=== PATIENT | male | born 1945 | race Caucasian/White ===

== ENCOUNTER 2023-11-14 08:11 | Inpatient (IN) ==
[2023-11-14] MEDS: OPTIRAY 320 125ml IV ONE (08:19)
--- NOTE | 2023-11-14 08:38 | Emergency Department Note ---
Impression & Plan Stroke-like symptoms ADMIT ED Provider Note HPI: History obtained from patient and EMS report. The patient is a 78-year-old gentleman with history of mandibular cancer status post tumor resection in 2006, who presents the emergency department with concern for strokelike symptoms. Per EMS report patient developed left-sided weakness and slurred speech at 0705 this morning when he was with his friends eating breakfast. On arrival here to the ED patient's symptoms are largely resolved. Patient tells me he was having difficulty drinking coffee at 0705 this morning and he felt numbness on the left side of his face and his left arm. He states he was having some difficulty moving the coffee cup to his mouth and felt discoordinated. On arrival here to the ED the patient is otherwise well- appearing. He does not have any focal motor deficits. He is alert and oriented x 3 on arrival. ROS: - Per HPI Differential Diagnosis: Acute ischemic stroke, intracranial hemorrhage, paresthesias, ACS, amongst other potential pathologies. *Outpatient medications and allergy history reviewed. 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 strength, symmetrical facial movements are appreciated, there is no drift of the upper extremities or lower extremities with testing against gravity, no ataxia on [id number] testing bilaterally Psychiatric: Cooperative INDEPENDENT INTERPRETATIONS: 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: (As interpreted by myself): - An order was placed for continuous cardiac monitoring - Patient was noted to be in sinus rhythm with a rate of 80 EKG: (As interpreted by myself): Rate: 84 Rhythm: Sinus rhythm Intervals: AK interval prolonged at 234 ms, QRS of 132 ms, QTc within normal limits ST changes: No ST elevation Time: 0830 Chest x-ray: (As interpreted by myself): No acute process Interventions provided in ED: -Aspirin, Lipitor NIH STROKE SCALE: 1A: Level of consciousness Alert; keenly responsive 0 1B: Ask month and age Both questions right 0 1C: 'Blink eyes' & 'squeeze hands' Performs both tasks 0 2: Horizontal extraocular movements Normal 0 3: Visual mann No visual loss 0 4: Facial palsy Normal symmetry 0 5A: Left arm motor drift No drift for 10 seconds 0 5B: Right arm motor drift No drift for 10 seconds 0 6A: Left leg motor drift No drift for 5 seconds 0 6B: Right leg motor drift No drift for 5 seconds 0 7: Limb Ataxia No ataxia 0 8: Sensation Normal; no sensory loss 0 9: Language/aphasia Normal; no aphasia 0 10: Dysarthria Normal 0 11: Extinction/inattention No abnormality 0 TOTAL NIH SCORE = 0 Medical Decision Making: Shortly after the patient arrived IV was established and lab work obtained, patient was placed on portrait consultant. Patient's initial exam is without focal deficits and he is assigned an NIH stroke score of 0. His symptoms seem to have rapidly improved. Lab work shows no leukocytosis, hemoglobin is stable at 13.4, platelet count is normal, CMP does not show any critical findings, troponin is negative x 1. CT ridging of the head as well as CT angiography were obtained and did not show any evidence of acute hemorrhage, no obvious evidence of acute stroke, old infarcts are noted as well as occlusion of the right carotid artery with reconstitution of flow distally. I discussed the patient's presentation with the on-call stroke neurologist at [facility], Dr. Sanchez, who did evaluate the patient via telestroke and patient was determined not to be candidate for thrombolytics given his rapid improvement in his symptoms. He does recommend admission, initiation of aspirin and Lipitor, and for MRI imaging of the brain to be obtained. I discussed this with the patient, he remains well-appearing on my reassessment without any new focal deficits. He is in agreement for admission. Case was then discussed with the on-call hospitalist, Dr. Dodge, and the patient was placed for admission in stable condition. Consultants/Discussions held with other healthcare providers: -Stroke Neurology, Dr. Sanchez -Hospitalist, Dr. Dodge Disposition discussion held by myself with: -Patient Diagnosis: 1. Strokelike symptoms, acute 2. 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 Beliefs That Will Affect Care: None Current Living Situation: Alone Other Information That Helps Us Care for You: No Feels Safe at Home: Yes Safety Concerns: Feels Safe At This Time Assistive Devices: Glasses Allergies Allergies Allergy/AdvReac Type Severity Reaction Status Date / Time No Known Allergies Allergy Unverified 11/14/23 12:31 Home Meds Home Medications Medication Instructions Recorded Confirmed Multi-Vitamin W/Minerals 1 tspn PO DAILY 11/14/23 11/14/23 buprenorphine 5 mcg/hour weekly 1 patch transdermal Q7D 11/14/23 11/14/23 transdermal patch diclofenac sodium 1 % topical gel 1 ea topical QID PRN joint pain 11/14/23 11/14/23 docusate sodium 100 mg capsule 100 mg PO BID 11/14/23 11/14/23 fluticasone propionate 50 1 spray intranasal BID PRN 11/14/23 11/14/23 mcg/actuation nasal allergies spray,suspension food supplemt, lactose-reduced 1 ea PO TID 11/14/23 11/14/23 (Ensure oral liquid) ketorolac 0.5 % eye drops 1 drp ophthalmic (eye) UD 11/14/23 11/14/23 lisinopril 10 mg tablet 10 mg PO DAILY 11/14/23 11/14/23 loratadine 10 mg tablet 10 mg PO DAILY PRN allergies 11/14/23 11/14/23 meloxicam 15 mg tablet 15 mg PO DAILY 11/14/23 11/14/23 moxifloxacin 0.5 % eye drops 1 drp ophthalmic (eye) UD 11/14/23 11/14/23 prednisolone acetate 1 % eye 1 drp ophthalmic (eye) UD 11/14/23 11/14/23 drops,suspension sildenafil 100 mg tablet 50 mg PO DAILY PRN Erectile 11/14/23 11/14/23 Dysfunction Results & Data (ED) Vital Signs Vital Signs - 24 hr 11/14/23 08:27 11/14/23 08:29 11/14/23 08:30 Temperature 36.6 C Temperature Source Oral Pulse Rate 88 81 Pulse Rate [Right Finger] Pulse Rate from SpO2 Sensor Pulse Rhythm [Right Finger] Pulse Strength [Right Finger] Respiratory Rate 15 Respiratory Effort / Characteristics Respiratory Depth Respiratory Pattern Blood Pressure 178/94 H 178/94 H Blood Pressure [Right Arm] Blood Pressure Mean 122 119 Blood Pressure Mean [Right Arm] Blood Pressure Position [Right Arm] Pulse Oximetry 98 Oxygen Delivery Method Room Air Oxygen Flow Rate Sepsis Recent Fever Within 48 Hours No Sepsis New/Unexplained Change in Mental Status No Sepsis Action Taken by Nursing No Action Required 11/14/23 08:30 11/14/23 08:35 11/14/23 08:36 Temperature Temperature Source Pulse Rate 75 Pulse Rate [Right Finger] Pulse Rate from SpO2 Sensor Pulse Rhythm [Right Finger] Pulse Strength [Right Finger] Respiratory Rate 21 Respiratory Effort / Characteristics Respiratory Depth Respiratory Pattern Blood Pressure 178/94 H Blood Pressure [Right Arm] Blood Pressure Mean 119 Blood Pressure Mean [Right Arm] Blood Pressure Position [Right Arm] Pulse Oximetry 96 97 Oxygen Delivery Method Room Air Oxygen Flow Rate 0 Sepsis Recent Fever Within 48 Hours Sepsis New/Unexplained Change in Mental Status Sepsis Action Taken by Nursing 11/14/23 09:00 11/14/23 09:00 11/14/23 11:00 Temperature Temperature Source Pulse Rate 69 54 L Pulse Rate [Right Finger] Pulse Rate from SpO2 Sensor 70 Pulse Rhythm [Right Finger] Pulse Strength [Right Finger] Respiratory Rate 20 23 Respiratory Effort / Characteristics Respiratory Depth Respiratory Pattern Blood Pressure 174/91 H 174/91 H 144/97 H Blood Pressure [Right Arm] Blood Pressure Mean 135 118 112 Blood Pressure Mean [Right Arm] Blood Pressure Position [Right Arm] Pulse Oximetry 96 96 Oxygen Delivery Method Room Air Room Air Oxygen Flow Rate Sepsis Recent Fever Within 48 Hours Sepsis New/Unexplained Change in Mental Status Sepsis Action Taken by Nursing 11/14/23 12:10 11/14/23 12:49 11/14/23 14:00 Temperature 36.4 C L 36.4 C L Temperature Source Oral Oral Pulse Rate 71 Pulse Rate [Right Finger] 61 62 Pulse Rate from SpO2 Sensor Pulse Rhythm [Right Finger] Regular Regular Pulse Strength [Right Finger] Normal Normal Respiratory Rate 12 20 20 Respiratory Effort / Characteristics Non-Labored Non-Labored Spontaneous Respiratory Depth Normal Normal Respiratory Pattern Regular Regular Blood Pressure 121/90 Blood Pressure [Right Arm] 143/74 H 120/98 Blood Pressure Mean Blood Pressure Mean [Right Arm] 97 105 Blood Pressure Position [Right Arm] Lying Semi-fowlers Pulse Oximetry 98 99 99 Oxygen Delivery Method Room Air Room Air Room Air Oxygen Flow Rate Sepsis Recent Fever Within 48 Hours Sepsis New/Unexplained Change in Mental Status Sepsis Action Taken by Nursing Laboratory Data 11/14/23 08:35 11/14/23 08:23 Lab Results 11/14/23 11/14/23 11/14/23 Range/Units 08:23 08:28 08:35 WBC Cancelled 5.82 RBC Cancelled 4.14 L Hgb Cancelled 13.4 L Hct Cancelled 40.6 L MCV Cancelled 98.1 MCH Cancelled 32.4 MCHC Cancelled 33.0 RDW Std Deviation Cancelled 44.7 RDW Coeff of Prakash Cancelled 12.3 Plt Count Cancelled 160 MPV Cancelled 9.8 Immature Gran % (Auto) Cancelled 0.3 Neut % (Auto) Cancelled 66.7 Lymph % (Auto) Cancelled 21.6 [place] % (Auto) Cancelled 6.9 Eos % (Auto) Cancelled 4.0 Baso % (Auto) Cancelled 0.5 Neut # (Auto) Cancelled 3.88 Lymph # (Auto) Cancelled 1.26 [place] # (Auto) Cancelled 0.40 Eos # (Auto) Cancelled 0.23 Baso # (Auto) Cancelled 0.03 Immature Gran # (Auto) Cancelled 0.02 Absolute Nucleated RBC Cancelled Nucleated RBC % (auto) Cancelled Neutrophils % (Manual) Cancelled Band Neutrophils % Cancelled Lymphocytes % (Manual) Cancelled Prolymphocyte % Cancelled Reactive Lymphs % (Man) Cancelled Monocytes % (Manual) Cancelled Eosinophils % (Manual) Cancelled Basophils % (Manual) Cancelled Metamyelocytes % (Man) Cancelled Myelocytes % (Man) Cancelled Promyelocytes % (Man) Cancelled Blast Cells % (Manual) Cancelled Plasma Cell % (Manual) Cancelled Other Cells % Cancelled Nucleated RBC % Cancelled Neutrophils # (Manual) Cancelled Band Neutrophils # Cancelled Total Absolute Neuts Cancelled Lymphocytes # (Manual) Cancelled Prolymphocyte # Cancelled Reactive Lymphs # Cancelled Total Abs Lymphocytes Cancelled Monocytes # (Manual) Cancelled Eosinophils # (Manual) Cancelled Basophils # (Manual) Cancelled Metamyelocytes # (Man) Cancelled Myelocytes # (Manual) Cancelled Promyelocytes # (Man) Cancelled Blast Cells # (Man) Cancelled Plasma Cell # (Manual) Cancelled Other Cells # Cancelled Nucleated RBCs # (Man) Cancelled Hypersegmented Neuts Cancelled Hyposegmented Neuts Cancelled Hypogranular Neuts Cancelled Large Granular Lymphs Cancelled # Lrg Granular Lymphs Cancelled Hairy Cells Cancelled Smudge Cells Cancelled Toxic Granulation Cancelled Toxic Vacuolation Cancelled Dohle Bodies Cancelled Fatoumata Rods Cancelled Platelet Estimate Cancelled Hypogranular Platelets Cancelled Giant Platelets Cancelled Platelet Satelliting Cancelled RBC Morphology Cancelled Polychromasia Cancelled Hypochromasia Cancelled Poikilocytosis Cancelled Basophilic Stippling Cancelled Anisocytosis Cancelled Microcytosis Cancelled Macrocytosis Cancelled Spherocytes Cancelled Pappenheimer Bodies Cancelled Sickle Cells Cancelled Target Cells Cancelled Tear Drop Cells Cancelled Ovalocytes Cancelled Stomatocytes Cancelled Duarte-Gene Autry Bodies Cancelled Echinocytes Cancelled Acanthocytes (Spur) Cancelled Rouleaux Cancelled RBC Agglutinates Cancelled Schistocytes Cancelled Sezary Cell Cancelled PT Cancelled INR Cancelled APTT Cancelled PTT Ratio Cancelled Sodium 138 (136-145) mmol/L Potassium 4.7 (3.5-5.1) mmol/L Chloride 104 (98-107) mmol/L Carbon Dioxide 29 (21-32) mmol/L Anion Gap 5 (3-11) BUN 21 (6-23) mg/dl Creatinine 0.65 (0.6-1.4) mg/dl Est Cr Clr Drug Dosing 84.1 ml/min Est GFR ( Amer) 109.5 ml/min Est GFR (Non-Af Amer) 94.5 ml/min BUN/Creatinine Ratio 32.3 H (10-20) Glucose 125 H (70-99(Fasting)) mg/dl POC Glucose 110 H (70-99) mg/dl Calcium 9.4 (8.6-10.3) mg/dl Magnesium 2.3 (1.7-2.4) mg/dl Total Bilirubin 0.6 (0.2-1.0) mg/dl AST 24 (13-39) U/L ALT 13 (7-52) U/L Alkaline Phosphatase 52 (34-104) U/L Troponin I High Sens 2.6 (0-20) pg/ml Total Protein 7.3 (6.0-8.3) gm/dl Albumin 4.4 (3.4-5.0) gm/dl Globulin 2.9 (2.5-4.0) gm/dl Albumin/Globulin Ratio 1.5 (0.9-2) Blood Parasites ID Cancelled Blood Type O Positive Antibody Screen NEGATIVE 11/14/23 Range/Units 08:37 WBC RBC Hgb Hct MCV MCH MCHC RDW Std Deviation RDW Coeff of Prakash Plt Count MPV Immature Gran % (Auto) Neut % (Auto) Lymph % (Auto) [place] % (Auto) Eos % (Auto) Baso % (Auto) Neut # (Auto) Lymph # (Auto) [place] # (Auto) Eos # (Auto) Baso # (Auto) Immature Gran # (Auto) Absolute Nucleated RBC Nucleated RBC % (auto) Neutrophils % (Manual) Band Neutrophils % Lymphocytes % (Manual) Prolymphocyte % Reactive Lymphs % (Man) Monocytes % (Manual) Eosinophils % (Manual) Basophils % (Manual) Metamyelocytes % (Man) Myelocytes % (Man) Promyelocytes % (Man) Blast Cells % (Manual) Plasma Cell % (Manual) Other Cells % Nucleated RBC % Neutrophils # (Manual) Band Neutrophils # Total Absolute Neuts Lymphocytes # (Manual) Prolymphocyte # Reactive Lymphs # Total Abs Lymphocytes Monocytes # (Manual) Eosinophils # (Manual) Basophils # (Manual) Metamyelocytes # (Man) Myelocytes # (Manual) Promyelocytes # (Man) Blast Cells # (Man) Plasma Cell # (Manual) Other Cells # Nucleated RBCs # (Man) Hypersegmented Neuts Hyposegmented Neuts Hypogranular Neuts Large Granular Lymphs # Lrg Granular Lymphs Hairy Cells Smudge Cells Toxic Granulation Toxic Vacuolation Dohle Bodies Fatoumata Rods Platelet Estimate Hypogranular Platelets Giant Platelets Platelet Satelliting RBC Morphology Polychromasia Hypochromasia Poikilocytosis Basophilic Stippling Anisocytosis Microcytosis Macrocytosis Spherocytes Pappenheimer Bodies Sickle Cells Target Cells Tear Drop Cells Ovalocytes Stomatocytes Duarte-Gene Autry Bodies Echinocytes Acanthocytes (Spur) Rouleaux RBC Agglutinates Schistocytes Sezary Cell PT 10.6 INR 1.0 APTT 28 PTT Ratio 1.0 Sodium (136-145) mmol/L Potassium (3.5-5.1) mmol/L Chloride (98-107) mmol/L Carbon Dioxide (21-32) mmol/L Anion Gap (3-11) BUN (6-23) mg/dl Creatinine (0.6-1.4) mg/dl Est Cr Clr Drug Dosing ml/min Est GFR ( Amer) ml/min Est GFR (Non-Af Amer) ml/min BUN/Creatinine Ratio (10-20) Glucose (70-99(Fasting)) mg/dl POC Glucose (70-99) mg/dl Calcium (8.6-10.3) mg/dl Magnesium (1.7-2.4) mg/dl Total Bilirubin (0.2-1.0) mg/dl AST (13-39) U/L ALT (7-52) U/L Alkaline Phosphatase (34-104) U/L Troponin I High Sens (0-20) pg/ml Total Protein (6.0-8.3) gm/dl Albumin (3.4-5.0) gm/dl Globulin (2.5-4.0) gm/dl Albumin/Globulin Ratio (0.9-2) Blood Parasites ID Blood Type Antibody Screen Administered Medications Buprenorphine HCl (Buprenorphine 5 Mcg/Hr Tdsy) 1 patch TD Q7D BEBO Stop: 12/14/23 10:59 Last Admin: 11/14/23 12:58 Dose: 1 patch Documented By: NAVI Miscellaneous (Remove & Waste Butrans Patch 1 Ea Ea) 1 each N/A Q7D BEBO Stop: 12/14/23 10:59 Last Admin: 11/14/23 12:59 Dose: Not Given Documented By: NAVI Discontinued Medications Aspirin (Aspirin Chew 324 Mg) 324 mg PO NOW STA Stop: 11/14/23 09:24 Last Admin: 11/14/23 09:41 Dose: 324 mg Documented By: ADOLFO Atorvastatin Calcium (Atorvastatin 40 Mg Tab) 80 mg PO NOW STA Stop: 11/14/23 09:24 Last Admin: 11/14/23 09:41 Dose: 80 mg Documented By: KV Ioversol (Optiray 320 125ml) 112 ml IV ONCE ONE Stop: 11/14/23 08:19 Last Admin: 11/14/23 08:19 Dose: 112 ml Documented By: FLORINA Imaging Data Radiologist's Impression: Head CT 11/14/23 08:12 CT head/brain wo con CLINICAL HISTORY: 78 years-old Male with neuro deficit, acute stroke suspected. Acute strokelike symptoms TECHNIQUE: Multiple axial CT images of the head were obtained without contrast. A dose lowering technique was utilized adhering to the principles of ALARA. COMPARISON: CTA head of same day, head CT 07/31/2008 FINDINGS: No acute intracranial hemorrhage, midline shift, intracranial mass, hydrocephalus, territorial ischemia or abnormal extra-axial collection. Involutional changes with suggestion of chronic microvascular ischemic disease. 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 There is a 1.4 cm hypodense focus within the periventricular right frontal lobe on image 17 series 2 which is also new from prior. The calvarium is intact. The paranasal sinuses, mastoid air cells, and middle ear cavities are clear. IMPRESSION: 1. No acute intracranial hemorrhage, midline shift or acute territorial infarct. 2. 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 3. 1.4 cm right periventricular hypodensity is new from 2008, also suggestive of a chronic infarct. ACT 112: Negative or not required by law. The above report was generated using voice recognition software. It may contain grammatical, syntax or spelling errors. Electronically signed by: Luis Carlos Bergeron M.D. 11/14/2023 9:14 AM Head CTA 11/14/23 08:12 CT ANGIOGRAM OF THE BRAIN CLINICAL HISTORY: Neurological deficit. Stroke like symptoms. COMPARISON STUDY: Unenhanced CT of the brain performed concurrently on 11/14/2023 TECHNIQUE: Following the IV administration of 112 cc of Optiray 320, CT angiogram of the brain was performed from the skull base to the vertex. Images are reviewed in the axial, sagittal, and coronal planes. 3-D MIPS images are created and assessed. IV contrast was administered without complication. A dose lowering technique was utilized adhering to the principles of ALARA. FINDINGS: Brain parenchyma: There is age related involutional change noting mild to moderate subcortical and periventricular microangiopathic disease. Foci of right frontal, parietal, and occipital encephalomalacia are consistent with a remote insult. There is no evidence of hemorrhage, mass effect, or acute territorial ischemia noting angiographic phase technique. There is no evidence of enhancing mass lesion on the angiogram phase images. No extra-axial fluid collection is seen. Pool-white matter differentiation is preserved. Ventricles, sulci, and cisterns: Prominent secondary to positional change. CT angiogram of the brain: There is atherosclerotic calcification of the cavernous carotid and vertebral arteries. There is complete thrombosis of the distal cervical portion of the right internal carotid artery. There is reconstitution of flow at the skull base, and the vessels patent to the e[place] of [place]. The left internal carotid artery at the skull base is widely patent. The anterior and middle cerebral arteries are patent bilaterally. The right vertebral artery is diminutive and shows thready flow at the skull base. The dominant left vertebral artery is widely patent, as is the basilar artery. There are large bilateral posterior communicating arteries. No aneurysm or focus of high-grade stenosis is identified throughout the intracranial circulation. Dural sinuses: Clear as visualized. Orbits: The bony orbits are intact. The orbital contents are normal as visualized. Sinuses and mastoids: The visualized paranasal sinuses are clear. The mastoid air cells are well pneumatized. Calvarium: Unremarkable. IMPRESSION: 1. There is no evidence of hemorrhage, mass effect, or acute territorial ischemia noting angiographic phase technique. 2. There is complete and age-indeterminate thrombosis of the distal cervical portions of the right internal carotid artery with reconstitution at the skull base. This may be chronic as there are remote right-sided MCA territory infarcts. An underlying dissection would be impossible to exclude. Correlate with neurological history. 3. There is only thready flow within the diminutive right vertebral artery. The dominant left vertebral artery is widely patent. 4. The anterior, middle, and posterior cerebral arteries are patent bilaterally. ACT 112: Negative or not required by law. Electronically signed by: Gerard Grajeda M.D. 11/14/2023 8:39 AM Neck CTA 11/14/23 08:12 CT angio neck with con CLINICAL HISTORY: 78 years-old Male with neuro deficit, acute stroke suspected. Acute strokelike symptoms COMPARISON STUDY: CTA head of same day TECHNIQUE: Following the IV administration of 112 mL of Optiray, CT angiogram of the neck was performed from the aortic arch to the skull base. Images are reviewed in the axial, sagittal, and coronal planes. 3-D MIPS images are created and assessed. IV contrast was administered without complication. All measurements were calculated based on NASCET criteria. A dose lowering technique was utilized adhering to the principles of ALARA. CT DOSE: 1241.78 mGy.cm FINDINGS: Three-vessel morphology of the thoracic aortic arch. Patency of the innominate and imaged subclavian arteries. The common carotid arteries are patent. Atheromatous plaque of the left carotid bulb and proximal cervical segment left ICA results in 60% stenosis. There is occlusion at the origin of the right ICA with reconstitution within the petrous segment. Widely patent dominant left vertebral artery. Diminutive right vertebral artery demonstrates multifocal stenoses, difficult to evaluate secondary to the very small size of the vessel. Lung apices are clear. Unremarkable soft tissues. Degenerative changes of the spine. IMPRESSION: 1. 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 2. 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 3. 60% stenosis at the origin of the left internal carotid artery. ACT 112: Negative or not required by law. The above report was generated using voice recognition software. It may contain grammatical, syntax or spelling errors. Electronically signed by: Luis Carlos Bergeron M.D. 11/14/2023 9:28 AM Brain MRI 11/14/23 10:48 MRI OF THE BRAIN WITHOUT IV CONTRAST CLINICAL HISTORY: Strokelike symptoms. COMPARISON STUDY: CT an CT angiogram of the brain dated 11/14/2023. TECHNIQUE: MRI of the brain was performed utilizing various T1 and T2-weighted sequences in the axial, sagittal, and coronal planes. IV contrast was not administered for this examination. FINDINGS: Brain parenchyma: Foci of right parietal and right occipital encephalomalacia are consistent with remote infarcts. There is also a chronic infarct in the right periventricular white matter. There is age-related involutional change noting mild microangiopathic disease. There is no hemorrhage or mass effect. There is no restricted diffusion to suggest acute ischemia. Pool-white matter differentiation is preserved. No extra-axial fluid collection is seen. The cerebellar tonsils are normal in configuration. Ventricles, sulci, and cisterns: Prominent secondary to involutional change. Pituitary and sella: Unremarkable. Intracranial vasculature: There is loss of the right internal carotid artery flow void at the skull base. The right vertebral artery flow void is normal visualized in the vessels hypoplastic. Orbits: The bony orbits are grossly intact. Orbital contents are normal in appearance. Sinuses and mastoids: Clear. Calvarium: Unremarkable. Cervical cord: Partially visualized cervical spinal cord is normal in morphology and signal intensity. IMPRESSION: 1. Chronic infarcts as above with no acute intracranial abnormality identified. 2. There is age-indeterminate occlusion of the right internal carotid artery. See report of CT angiograms of the head and neck performed the same day for full evaluation of the vasculature. ACT 112: Negative or not required by law. Electronically signed by: Gerard Grajeda M.D. 11/14/2023 12:19 PM Chest X-Ray 11/14/23 10:48 XR chest 1V portable HISTORY: stroke workup COMPARISON: None. FINDINGS: The lungs are clear. Cardiac silhouette is normal in size. No pleural effusions. No pneumothorax. IMPRESSION: No acute process. ACT 112: Negative or not required by law. Electronically signed by: Arpan Gill M.D. 11/14/2023 11:08 AM Discharge Plan Visit Data Chief Complaint: Stroke Alert Stated Complaint: Stroke Alert, L Weakness ED Provider: Jay Sibley Discharge Problem: Stroke-like symptoms Patient Disposition: Admitted As Inpatient Discharge Instructions Interventions: ED Discharge Assessment Last Done: 11/14/23 14:00 Forms Stand Alone Forms: [facility] Prescriptions Prescriptions: No Action meloxicam 15 mg Tablet 15 mg PO DAILY sildenafil 100 mg Tablet 50 mg PO DAILY PRN (Reason: Erectile Dysfunction) ketorolac 0.5 % Drops 1 drp OPHTHALMIC (EYE) UD Rx Instructions: 1 drop right eye qid. Filled 6[facility] prednisolone acetate 1 % Drops,Suspension 1 drp ophthalmic (eye) UD Rx Instructions: 1 drop right eye qid day. Filled 6[facility]6 [facility] lisinopril 10 mg Tablet 10 mg PO DAILY docusate sodium 100 mg Capsule 100 mg PO BID fluticasone propionate [Flonase] 50 mcg/actuation [place],Suspension 1 spray INTRANASAL BID PRN (Reason: allergies) Rx Instructions: administer into each nostril loratadine 10 mg Tablet 10 mg PO DAILY PRN (Reason: allergies) Ensure Liquid 1 ea PO TID moxifloxacin 0.5 % Drops 1 drp ophthalmic (eye) UD Rx Instructions: 1 drop right eye qid. Surgical prophylaxis [facility] 10[facility]12 [facility] diclofenac sodium 1 % Gel 1 ea TOPICAL QID PRN (Reason: joint pain) buprenorphine 5 mcg/hour Patch Weekly 1 patch TRANSDERMAL Q7D Multi-Vitamin W/Minerals 1 tspn PO DAILY Referrals Referrals: [facility] [Primary Care Provider] -
--- NOTE | 2023-11-14 08:40 | CT Scan Report ---
CT ANGIOGRAM OF THE BRAIN CLINICAL HISTORY: Neurological deficit. Stroke like symptoms. COMPARISON STUDY: Unenhanced CT of the brain performed concurrently on 11/14/2023 TECHNIQUE: Following the IV administration of 112 cc of Optiray 320, CT angiogram of the brain was pe rformed from the skull base to the vertex. Images are reviewed in the axial, sagittal, and coronal pl anes. 3-D MIPS images are created and assessed. IV contrast was administered without complication. A dose lowering technique was utilized adhering to the principles of ALARA. FINDINGS: Brain parenchyma: There is age related involutional change noting mild to moderate subcortical and pe riventricular microangiopathic disease. Foci of right frontal, parietal, and occipital encephalomalac ia are consistent with a remote insult. There is no evidence of hemorrhage, mass effect, or acute ter ritorial ischemia noting angiographic phase technique. There is no evidence of enhancing mass lesion on the angiogram phase images. No extra-axial fluid collection is seen. Pool-white matter differentia tion is preserved. Ventricles, sulci, and cisterns: Prominent secondary to positional change. CT angiogram of the brain: There is atherosclerotic calcification of the cavernous carotid and verteb ral arteries. 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 There is reconstitution of flow at the skull base, and the vessels patent to the [place] of [place]. The left internal carotid artery at the skull base is widely patent. The anterior and middle cerebral arteries are patent bilaterally. The right vertebral artery is diminutive and shows thready flow at the skull base. The dominant left vertebral artery is widely patent, as is the basilar arter y. There are large bilateral posterior communicating arteries. No aneurysm or focus of high-grade marvin nosis is identified throughout the intracranial circulation. Dural sinuses: Clear as visualized. Orbits: The bony orbits are intact. The orbital contents are normal as visualized. Sinuses and mastoids: The visualized paranasal sinuses are clear. The mastoid air cells are well pneu matized. Calvarium: Unremarkable. IMPRESSION: 1. There is no evidence of hemorrhage, mass effect, or acute territorial ischemia noting angiographic phase technique. 2. 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 This may be chronic as there are remote right-sided MCA territory infarcts. An underlying dissection would be impossible to exclude. Correlat e with neurological history. 3. There is only thready flow within the diminutive right vertebral artery. The dominant left vertebr al artery is widely patent. 4. The anterior, middle, and posterior cerebral arteries are patent bilaterally. ACT 112: Negative or not required by law. Electronically signed by: Gerard Grajeda M.D. 11/14/2023 8:39 AM
[2023-11-14 08:47] LABS: Basophils % (auto) 0.5 %; Hematocrit (blood only) 40.6 % (42.0-52.0); Hemoglobin 13.4 g/dl (14.0-18.0); Lymphocytes % (auto) 21.6 %; Mean Corpuscular Hemoglobin 32.4 pg (25.0-34.0); Mean Corpuscular Volume 98.1 fL (80.0-100.0); Mean Platelet Volume 9.8 fL (9.4-12.4); Monocytes % (auto) 6.9 %; Neutrophils % (auto) 66.7 %; Platelet Count 160 K/uL (130-400); RDW Coefficient of Variation 12.3 % (11.5-14.5); RDW Standard Deviation 44.7 fL (36.4-46.3); Red Blood Count 4.14 M/uL (4.70-6.10); White Blood Count 5.82 K/ul (4.8-10.8)
[2023-11-14 08:48] LABS: Basophils # (auto) 0.03 K/uL (0.00-0.20); Eosinophils # (auto) 0.23 K/uL (0.00-0.50); Immature Granulocytes # (auto) 0.02 K/uL (0.01-0.20); Immature Granulocytes % (auto) 0.3 %; Lymphocytes # (auto) 1.26 K/uL (1.20-3.40); Neutrophils # (auto) 3.88 K/uL (1.40-6.50)
[2023-11-14 08:58] LABS: Albumin Globulin Ratio 1.5 (0.9-2); Albumin Level 4.4 gm/dl (3.4-5.0); BUN Creatinine Ratio 32.3 (10-20); Bilirubin,Total 0.6 mg/dl (0.2-1.0); Calcium 9.4 mg/dl (8.6-10.3); Creatinine Clr Calc Pharmacy 84.1 ml/min; Est GFR (African American) 109.5 ml/min; Est GFR (Non-African American) 94.5 ml/min; Globulin 2.9 gm/dl (2.5-4.0); Magnesium 2.3 mg/dl (1.7-2.4); Potassium 4.7 mmol/L (3.5-5.1); Total Protein 7.3 gm/dl (6.0-8.3)
[2023-11-14 09:04] LABS: Troponin I High Sensitivity 2.6 pg/ml (0-20)
--- NOTE | 2023-11-14 09:16 | CT Scan Report ---
CT head/brain wo con CLINICAL HISTORY: 78 years-old Male with neuro deficit, acute stroke suspected. Acute strokelike sym ptoms TECHNIQUE: Multiple axial CT images of the head were obtained without contrast. A dose lowering tech nique was utilized adhering to the principles of ALARA. COMPARISON: CTA head of same day, head CT 07/31/2008 FINDINGS: No acute intracranial hemorrhage, midline shift, intracranial mass, hydrocephalus, territorial ischem ia or abnormal extra-axial collection. Involutional changes with suggestion of chronic microvascular ischemic disease. 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 There is a 1.4 cm hypo dense focus within the periventricular right frontal lobe on image 17 series 2 which is also new from prior. The calvarium is intact. The paranasal sinuses, mastoid air cells, and middle ear cavities are clear . IMPRESSION: 1. No acute intracranial hemorrhage, midline shift or acute territorial infarct. 2. 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 3. 1.4 cm right periventricular hypodensity is new from 2009, also suggestive of a chronic infarct. ACT 112: Negative or not required by law. The above report was generated using voice recognition software. It may contain grammatical, syntax o r spelling errors. Electronically signed by: Luis Carlos Bergeron M.D. 11/14/2023 9:14 AM
[2023-11-14 09:23] LABS: Partial Thromboplastin Time 28 Seconds (21-31); Prothrombin Time 10.6 Seconds (9.0-12.0)
--- NOTE | 2023-11-14 09:30 | CT Scan Report ---
CT angio neck with con CLINICAL HISTORY: 78 years-old Male with neuro deficit, acute stroke suspected. Acute strokelike s ymptoms COMPARISON STUDY: CTA head of same day TECHNIQUE: Following the IV administration of 112 mL of Optiray, CT angiogram of the neck was perform ed from the aortic arch to the skull base. Images are reviewed in the axial, sagittal, and coronal pl anes. 3-D MIPS images are created and assessed. IV contrast was administered without complication. Al l measurements were calculated based on NASCET criteria. A dose lowering technique was utilized adhe ring to the principles of ALARA. CT DOSE: 1241.78 mGy.cm FINDINGS: Three-vessel morphology of the thoracic aortic arch. Patency of the innominate and imaged subclavian arteries. The common carotid arteries are patent. Atheromatous plaque of the left carotid bulb and pr oximal cervical segment left ICA results in 60% stenosis. There is occlusion at the origin of the rig ht ICA with reconstitution within the petrous segment. Widely patent dominant left vertebral artery. Diminutive right vertebral artery demonstrates multifoc al stenoses, difficult to evaluate secondary to the very small size of the vessel. Lung apices are clear. Unremarkable soft tissues. Degenerative changes of the spine. IMPRESSION: 1. 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 2. 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 3. 60% stenosis at the origin of the left internal carotid artery. ACT 112: Negative or not required by law. The above report was generated using voice recognition software. It may contain grammatical, syntax o r spelling errors. Electronically signed by: Luis Carlos Bergeron M.D. 11/14/2023 9:28 AM
[2023-11-14] MEDS: ASPIRIN CHEW 324 MG PO STA (09:41)
[2023-11-14] MEDS: ATORVASTATIN 40 MG TAB PO STA (09:41)
--- NOTE | 2023-11-14 10:22 | History & Physical Report ---
Date of Service November 14, 2023 Assessment & Plan (1) Stroke-like symptoms: Plan: Admit to the PCU on telemetry Currently stable with patient reporting resolution of subjective left-sided facial numbness, left upper extremity numbness/weakness, and confusion Patient presented to the ED as a stroke alert with acute onset of symptoms around 7 AM, last known well was approximately 6 AM. Patient was evaluated by [facility] telestroke who believed the patient's vascu lar findings were chronic and recommended full dose aspirin and statin with ongoing stroke workup TNK administration was not recommended due to symptoms significantly improving at the time of arrival ED did confirm that telestroke recommended permissive hypertension with systolic blood pressure of 220 mmHg and diastolic of 110 mmHg Status post 324 mg aspirin and 80 mg atorvastatin prior to admission Will obtain MRI of the brain without con, TTE, a.m. A1c and fasting lipid panel for further evaluation Will place neurology, PT/OT consults Every 4 hours neurochecks Will keep patient n.p.o. until he is evaluated by speech therapy due to his high risk for aspiration Will plan to continue 81 mg aspirin and 20 mg atorvastatin tomorrow, can adjust dosing based on fasting lipid panel IV labetalol 5 mg IV every 4 hours as needed systolic BP greater than 220 mmHg or diastolic greater than 120 mmHg Bilateral SCDs for DVT prophylaxis AM CBC, CMP, mag, PT/INR (2) HTN (hypertension): Plan: Patient confirms he did not take his a.m. dose of lisinopril prior to onset of symptoms Hold lisinopril for now while allowing permissive hypertension As needed IV labetalol per strokelike symptoms plan (3) Chronic pain: Plan: Patient is typically on 5 mg buprenorphine patch changed weekly Patient's patch was on the left chest at the time of arrival, this was removed by nursing staff Confirmed with nursing staff that patient is on the 5 mg patch Has a new patch placed at the time of admission to prevent patient going into withdrawal (4) Right internal carotid occlusion: Plan: Patient noted to have age-indeterminate occlusion of the right internal carotid artery with reconstitution of flow within the petrous segment Also noted to have thready flow within the diminutive right vertebral artery with widely patent left vertebral artery Anne telestroke provider expressed to the ED staff at these findings appear chronic Will continue with 81 mg aspirin and 20 mg statin tomorrow, follow Hgb A1c and fasting lipid panel Will speak with our on-call neurologist to see if they would recommend starting the patient on dual antiplatelet therapy with his significant chronic atherosclerotic disease (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 until he is evaluated by speech therapy Patient normally uses a full liquid diet at home Plan The patient was discussed with Dr. Page at the time of the admission History of Present Illness Chief Complaint: Stroke alert Primary Care Provider: [facility] Yaw is a 78-year-old male with a past medical history significant for mandibular cancer S/P radiation/chemotherapy and left mandibular resection in 2006, HTN, chronic pain (on Buprenorphine patch) who presented to the [facility] ED via EMS on 11/14/2023 with acute onset of left arm weakness and inability to swallow at 705 this morning. Per EMS the patient was noted to have left-sided weakness, left-sided facial droop, and slurred speech. He was noted to have slurred speech and left-sided facial droop on arrival to the ED. He was noted to be hypertensive at 178/94 but was otherwise stable. Labs including CBC, CMP, and high-sensitivity troponin were unremarkable. CT of the head and brain without contrast was read as negative for acute intracranial hemorrhage, midline shift or acute tentorial infarct. Chronic right parietooccipital infarcts are new from prior. 1.4 cm right periventricular hypodensity is new from 2008, also suggestive of a chronic infarct. CTA of the head/brain noted complete and age indeterminant thrombosis of the distal cervical portions of the right internal carotid artery with reconstitution at the skull base. This may be chronic as there are remote right-sided MCA territory infarcts. An underlying dissection will be impossible to exclude. Correlate with neurologic history. There is only thready flow within the diminutive right vertebral artery. The dominant left vertebral artery is widely patent. The anterior, middle, and posterior cerebral arteries are patent bilaterally. CTA of the neck was read as age-indeterminate occlusion of the right internal carotid artery with reconstitution of flow within the petrous segment. Developmentally diminutive right vertebral artery with multifocal stenosis. 60% stenosis at the origin of the left internal carotid artery. The patient was evaluated by [facility] telestroke provider Dr. Sanchez who recommended giving the patient a dose of full dose aspirin, statin, and obtaining the rest of his stroke workup. The ED stated that [facility] telestroke believed his CT findings to be chronic in regards to his right internal carotid and vertebral artery stenosis/occlusion. Prior to admission the patient was given 324 mg aspirin and 80 mg atorvastatin. Patient was sitting in bed in no acute distress at the time of exam. He states that he felt his normal self when he woke around 6 AM. He took his a.m. medications including lisinopril. [place] was at the gas station when his symptoms acutely started. He noted left-sided facial numbness, left upper extremity numbness/weakness, and confusion. He feels his symptoms have resolved at the time of admission. He is on the buprenorphine patch due to severe osteoarthritis and pain from his extensive surgery in 2006. He does not use tobacco or alcohol. We discussed CODE STATUS, he wishes to be a full code and his sister is his power of custom clothier. Please refer to Dr. Page's attestation for any changes to the treatment plan. Allergies Allergy/AdvReac Type Severity Reaction Status Date / Time No Known Allergies Allergy Unverified 11/14/23 12:31 Home Medications Medication Instructions Recorded Confirmed Type Multi-Vitamin W/Minerals 1 tspn PO DAILY 11/14/23 11/14/23 History buprenorphine 5 mcg/hour weekly 1 patch transdermal Q7D 11/14/23 11/14/23 History transdermal patch diclofenac sodium 1 % topical gel 1 ea topical QID PRN joint pain 11/14/23 11/14/23 History docusate sodium 100 mg capsule 100 mg PO BID 11/14/23 11/14/23 History fluticasone propionate 50 1 spray intranasal BID PRN 11/14/23 11/14/23 History mcg/actuation nasal allergies spray,suspension food supplemt, lactose-reduced 1 ea PO TID 11/14/23 11/14/23 History (Ensure oral liquid) ketorolac 0.5 % eye drops 1 drp ophthalmic (eye) UD 11/14/23 11/14/23 History lisinopril 10 mg tablet 10 mg PO DAILY 11/14/23 11/14/23 History loratadine 10 mg tablet 10 mg PO DAILY PRN allergies 11/14/23 11/14/23 History meloxicam 15 mg tablet 15 mg PO DAILY 11/14/23 11/14/23 History moxifloxacin 0.5 % eye drops 1 drp intracameral UD 11/14/23 11/14/23 History prednisolone acetate 1 % eye 1 drp ophthalmic (eye) UD 11/14/23 11/14/23 History drops,suspension sildenafil 100 mg tablet 50 mg PO DAILY PRN Erectile 11/14/23 11/14/23 History Dysfunction Past Med/Surg History Problem List (Updated 11/14/23 @ 11:04 by Kun Roberson PA-C) 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 Chronic pain HTN (hypertension) Stroke-like symptoms Social History Smoking Status: Former smoker Hx Alcohol Use: No Hx Substance Use: No Preferred Language: Czech Communication Ability: Effective Crop Nutrition Scientist Required: No Beliefs That Will Affect Care: None Current Living Situation: Alone Other Information That Helps Us Care for You: No Feels Safe at Home: Yes Safety Concerns: Feels Safe At This Time Assistive Devices: Glasses Physical Exam Physical Exam: Physical Exam: General: In no acute distress, stated age, non-toxic appearing HEENT: Patient with previous left mandible resection, no acute trauma, no scleral icterus, pupils around round, symmetrical, and reactive to light, dry mucus membranes, trachea midline, no thyromegaly Chest/Pulm: No respiratory distress, symmetrical chest expansion, clear breath sounds throughout Cardiac: RRR, no murmurs noted Abdomen: Negative for ascites and bruising, normoactive bowel sounds, soft, non-tender to palpation throughout Musculoskeletal: Previous left sided facial and LUE surgery as mentioned above, mild weakness in the LUE compared to right on exam, symmetrical strength in the BL LE's Extremities: Radial, dorsalis pedis, and posterior tibial pulses are intact and symmetrical, no edema noted in the BL LE's Skin: Warm, dry, no rashes , lesions, or scars noted Neuro: Alert and oriented to person, place, month, year, and president, facial droop is difficult to observer due to significant previous facial surgery, CN II-XII tested and intact, patient unable to complete pronator drift and cerebellar testing in the LUE due to previous surgeries Psych: No acute distress, calm and cooperative during the exam Results & Data Results & Data Vital Signs (Past 12 Hours) Vital Signs Temp Pulse Resp BP Pulse Ox O2 Del Method O2 Flow Rate 11/14/23 08:36 75 21 97 11/14/23 08:35 96 Room Air 0 11/14/23 08:30 178/94 H 11/14/23 08:30 178/94 H 11/14/23 08:27 36.6 C 88 15 178/94 H 98 Room Air Laboratory Results Abnormal lab results 11/14/23 11/14/23 11/14/23 Range/Units 08:23 08:28 08:35 RBC 4.14 L (4.70-6.10) M/uL Hgb 13.4 L (14.0-18.0) g/dl Hct 40.6 L (42.0-52.0) % BUN/Creatinine Ratio 32.3 H (10-20) Glucose 125 H (70-99(Fasting)) mg/dl POC Glucose 110 H (70-99) mg/dl Diagnostic Findings Head CT 11/14/23 08:12 CT head/brain wo con CLINICAL HISTORY: 78 years-old Male with neuro deficit, acute stroke suspected. Acute strokelike symptoms TECHNIQUE: Multiple axial CT images of the head were obtained without contrast. A dose lowering technique was utilized adhering to the principles of ALARA. COMPARISON: CTA head of same day, head CT 07/31/2008 FINDINGS: No acute intracranial hemorrhage, midline shift, intracranial mass, hydrocephalus, territorial ischemia or abnormal extra-axial collection. Involutional changes with suggestion of chronic microvascular ischemic disease. 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 There is a 1.4 cm hypodense focus within the periventricular right frontal lobe on image 17 series 2 which is also new from prior. The calvarium is intact. The paranasal sinuses, mastoid air cells, and middle ear cavities are clear. IMPRESSION: 1. No acute intracranial hemorrhage, midline shift or acute territorial infarct. 2. 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 3. 1.4 cm right periventricular hypodensity is new from 2008, also suggestive of a chronic infarct. ACT 112: Negative or not required by law. The above report was generated using voice recognition software. It may contain grammatical, syntax or spelling errors. Electronically signed by: Luis Carlos Bergeron M.D. 11/14/2023 9:14 AM Head CTA 11/14/23 08:12 CT ANGIOGRAM OF THE BRAIN CLINICAL HISTORY: Neurological deficit. Stroke like symptoms. COMPARISON STUDY: Unenhanced CT of the brain performed concurrently on 11/14/2023 TECHNIQUE: Following the IV administration of 112 cc of Optiray 320, CT angiogram of the brain was performed from the skull base to the vertex. Images are reviewed in the axial, sagittal, and coronal planes. 3-D MIPS images are created and assessed. IV contrast was administered without complication. A dose lowering technique was utilized adhering to the principles of ALARA. FINDINGS: Brain parenchyma: There is age related involutional change noting mild to moderate subcortical and periventricular microangiopathic disease. Foci of right frontal, parietal, and occipital encephalomalacia are consistent with a remote insult. There is no evidence of hemorrhage, mass effect, or acute territorial ischemia noting angiographic phase technique. There is no evidence of enhancing mass lesion on the angiogram phase images. No extra-axial fluid collection is seen. Pool-white matter differentiation is preserved. Ventricles, sulci, and cisterns: Prominent secondary to positional change. CT angiogram of the brain: There is atherosclerotic calcification of the cavernous carotid and vertebral arteries. There is complete thrombosis of the distal cervical portion of the right internal carotid artery. There is reconstitution of flow at the skull base, and the vessels patent to the [place] of [place]. The left internal carotid artery at the skull base is widely patent. The anterior and middle cerebral arteries are patent bilaterally. The right vertebral artery is diminutive and shows thready flow at the skull base. The dominant left vertebral artery is widely patent, as is the basilar artery. There are large bilateral posterior communicating arteries. No aneurysm or focus of high-grade stenosis is identified throughout the intracranial circulation. Dural sinuses: Clear as visualized. Orbits: The bony orbits are intact. The orbital contents are normal as visualized. Sinuses and mastoids: The visualized paranasal sinuses are clear. The mastoid air cells are well pneumatized. Calvarium: Unremarkable. IMPRESSION: 1. There is no evidence of hemorrhage, mass effect, or acute territorial ischemia noting angiographic phase technique. 2. There is complete and age-indeterminate thrombosis of the distal cervical portions of the right internal carotid artery with reconstitution at the skull base. This may be chronic as there are remote right-sided MCA territory infarcts. An underlying dissection would be impossible to exclude. Correlate with neurological history. 3. There is only thready flow within the diminutive right vertebral artery. The dominant left vertebral artery is widely patent. 4. The anterior, middle, and posterior cerebral arteries are patent bilaterally. ACT 112: Negative or not required by law. Electronically signed by: Gerard Grajeda M.D. 11/14/2023 8:39 AM Neck CTA 11/14/23 08:12 CT angio neck with con CLINICAL HISTORY: 78 years-old Male with neuro deficit, acute stroke suspected. Acute strokelike symptoms COMPARISON STUDY: CTA head of same day TECHNIQUE: Following the IV administration of 112 mL of Optiray, CT angiogram of the neck was performed from the aortic arch to the skull base. Images are reviewed in the axial, sagittal, and coronal planes. 3-D MIPS images are created and assessed. IV contrast was administered without complication. All measurements were calculated based on NASCET criteria. A dose lowering technique was utilized adhering to the principles of ALARA. CT DOSE: 1241.78 mGy.cm FINDINGS: Three-vessel morphology of the thoracic aortic arch. Patency of the innominate and imaged subclavian arteries. The common carotid arteries are patent. Atheromatous plaque of the left carotid bulb and proximal cervical segment left ICA results in 60% stenosis. There is occlusion at the origin of the right ICA with reconstitution within the petrous segment. Widely patent dominant left vertebral artery. Diminutive right vertebral artery demonstrates multifocal stenoses, difficult to evaluate secondary to the very small size of the vessel. Lung apices are clear. Unremarkable soft tissues. Degenerative changes of the spine. IMPRESSION: 1. 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 2. 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 3. 60% stenosis at the origin of the left internal carotid artery. ACT 112: Negative or not required by law. The above report was generated using voice recognition software. It may contain grammatical, syntax or spelling errors. Electronically signed by: Luis Carlos Bergeron M.D. 11/14/2023 9:28 AM ECG Additional Comments: Sinus rhythm with 1st degree A-V block Right bundle branch block Septal infarct , age undetermined Abnormal ECG When compared with ECG of 31-JUL-2008 19:11, [place] interval has increased Septal infarct is now Present Code Status & VTE Plan Code Status Full code VTE Prophylaxis Plan VTE Prophylaxis will be ordered: Yes Supervising Physician Co-Signing Physician Notes Patient seen and examined, chart reviewed, case discussed with Kun Roberson PA-C and I agree with the assessment and plan as above except as otherwise noted Labs and images reviewed Yaw is a 78-year-old male with past medical history of mandibular cancer, chronic pain of buprenorphine 5mg patch, htn who presents with sudden onset of left-sided arm numbness and? Weakness with difficulty drinking coffee at 7:05 AM. Patient was seen as a stroke alert. Symptoms improved while in the ER. He received full dose aspirin and was started on a statin. Case was reviewed by telestroke and due to improving symptoms TNKase was not indicated/recommended. CTA of the neck shows an age-indeterminate occlusion of the right internal carotid with reconstitution of flow, developmentally diminutive right vertebral artery with multifocal stenosis, and 60% stenosis at the left ICA contralateral stroke symptoms. Head CTA shows complete and age-indeterminate thrombosis of distal right ICA with reconstitution, suspected chronic as there are remote right-sided MCA territory infarcts underlying dissection impossible to exclude. CRISTIANE/AMA/PAINTER HELPER SIGN patent bilaterally. No evidence of bleeding. CThead shows no acute hemorrhage, chronic right parieto-occipital infarct new from prior, and right periventricular hypodensity new from prior likely chronic infarct. Case was reviewed by telestroke, patient was recommended for aspirin monotherapy with atorvastatin. Permissive hypertension to 220/110 due to underlying carotid disease for 24 hours was recommended. Labetalol on-call as needed for permissive hypertension goals. No history of A-fib. Echo with bubble study is pending. Sitting up bedside, feels his strength is better and improvement of tingling in the left arm at time of visit. He does have difficulty with swallowing since his surgery and typically maintains nutrition with Ensure. Will have speech therapy assess prior to advancing diet. Reviewed with neurology. Given extensive vascular disease recommend DAPT for 3 weeks followed by Plavix monotherapy thereafter. Can have nonemergent follow-up with vascular given contralateral ICA disease. Appreciate recommendations. agree with above PG Care Time/CCT Total # of Minutes Spent Total Time Spent with Patient: Total time spent is greater than 50% in coordination of care (as documented) at patient's floor/unit and/or counseling patient: [place] [address] INT INP/OBS CARE MIN Patient Type New Medical Decision Making High Complexity Diagnoses Stroke-like symptoms R29.90 HTN (hypertension) I10 Chronic pain G89.29 Right internal carotid occlusion I65.21 Cancer of mandible C41.1
[2023-11-14] MEDS ORDERED: PHARMACIST DISCHARGE MED REC CONSULT PRN (10:28)
[2023-11-14] MEDS ORDERED: LABETALOL HCL IV 5 MG/ML 20ML IV PRN ×2 (10:30→10:32)
--- NOTE | 2023-11-14 11:09 | XRay Report ---
XR chest 1V portable HISTORY: stroke workup COMPARISON: None. FINDINGS: The lungs are clear. Cardiac silhouette is normal in size. No pleural effusions. No pneumot horax. IMPRESSION: No acute process. ACT 112: Negative or not required by law. Electronically signed by: Arpan Gill M.D. 11/14/2023 11:08 AM
--- NOTE | 2023-11-14 12:20 | Magnetic Resonance Report ---
MRI OF THE BRAIN WITHOUT IV CONTRAST CLINICAL HISTORY: Strokelike symptoms. COMPARISON STUDY: CT an CT angiogram of the brain dated 11/14/2023. TECHNIQUE: MRI of the brain was performed utilizing various T1 and T2-weighted sequences in the axial , sagittal, and coronal planes. IV contrast was not administered for this examination. FINDINGS: Brain parenchyma: Foci of right parietal and right occipital encephalomalacia are consistent with rem ote infarcts. There is also a chronic infarct in the right periventricular white matter. There is age -related involutional change noting mild microangiopathic disease. There is no hemorrhage or mass eff ect. There is no restricted diffusion to suggest acute ischemia. Pool-white matter differentiation is preserved. No extra-axial fluid collection is seen. The cerebellar tonsils are normal in configurati on. Ventricles, sulci, and cisterns: Prominent secondary to involutional change. Pituitary and sella: Unremarkable. Intracranial vasculature: There is loss of the right internal carotid artery flow void at the skull b ase. The right vertebral artery flow void is normal visualized in the vessels hypoplastic. Orbits: The bony orbits are grossly intact. Orbital contents are normal in appearance. Sinuses and mastoids: Clear. Calvarium: Unremarkable. Cervical cord: Partially visualized cervical spinal cord is normal in morphology and signal intensity . IMPRESSION: 1. Chronic infarcts as above with no acute intracranial abnormality identified. 2. There is age-indeterminate occlusion of the right internal carotid artery. See report of CT angiog eber of the head and neck performed the same day for full evaluation of the vasculature. ACT 112: Negative or not required by law. Electronically signed by: Gerard Grajeda M.D. 11/14/2023 12:19 PM
[2023-11-14] MEDS: BUPRENORPHINE 5 MCG/HR TDSY TD SCH (12:58)
[2023-11-14] MEDS ORDERED: prednisoLONE acetate 1% OP SUSP 5 ML BTL OP SCH (14:45)
[2023-11-14] MEDS: MOXIFLOXACIN HCL 0.5% OP SOLN 3 ML BTL OP SCH (15:21)
[2023-11-14] MEDS: CHECK BUPRENORPHINE PATCH SCH (15:22)
[2023-11-14] MEDS: CLOPIDOGREL BISULFATE 300 MG TAB PO STA (16:12)
--- NOTE | 2023-11-14 16:12 | Electrocardiogram Report ---
Test Reason : Blood Pressure : / mmHG Vent. Rate : 084 BPM Atrial Rate : 084 BPM P-R Int : 234 ms QRS Dur : 132 ms QT Int : 398 ms P-R-T Axes : 090 069 055 degrees QTc Int : 470 ms Sinus rhythm with 1st degree A-V block Right bundle branch block Abnormal ECG When compared with ECG of 31-JUL-2008 19:11, [place] interval has increased Confirmed by Martir Holden ([id number]) on 11/14/2023 4:11:48 PM Referred By: REFERRED SELF Confirmed By:Rogers Holden
[2023-11-14] MEDS: KETOROLAC 0.5% OP SOLN 5 ML BTL OP SCH (16:13)
[2023-11-14] MEDS: prednisoLONE acetate 1% OP SUSP 5 ML BTL OP SCH (16:17)
[2023-11-14] MEDS: DOCUSATE SODIUM 100 MG CAP PO SCH (19:51)
--- NOTE | 2023-11-14 20:41 | XCELERA ---
[id number]
[2023-11-15 06:39] LABS: Basophils # (auto) 0.04 K/uL (0.00-0.20); Basophils % (auto) 0.6 %; Eosinophils # (auto) 0.32 K/uL (0.00-0.50); Eosinophils % (auto) 4.5 %; Hemoglobin 14.3 g/dl (14.0-18.0); Immature Granulocytes # (auto) 0.02 K/uL (0.01-0.20); Immature Granulocytes % (auto) 0.3 %; Lymphocytes # (auto) 2.09 K/uL (1.20-3.40); Lymphocytes % (auto) 29.3 %; Mean Corpuscular Hemoglobin 32.4 pg (25.0-34.0); Mean Corpuscular Hgb Conc 33.3 g/dL (32.0-36.0); Mean Corpuscular Volume 97.5 fL (80.0-100.0); Mean Platelet Volume 10.2 fL (9.4-12.4); Monocytes # (auto) 0.53 K/uL (0.11-0.59); Monocytes % (auto) 7.4 %; Neutrophils # (auto) 4.14 K/uL (1.40-6.50); Neutrophils % (auto) 57.9 %; Platelet Count 167 K/uL (130-400); RDW Coefficient of Variation 12.4 % (11.5-14.5); RDW Standard Deviation 44.7 fL (36.4-46.3); Red Blood Count 4.41 M/uL (4.70-6.10); White Blood Count 7.14 K/ul (4.8-10.8)
[2023-11-15 06:54] LABS: Estimated Average Glucose 131 mg/dl; Hemoglobin A1C 6.2 % (4.5-5.6)
[2023-11-15 06:59] LABS: Albumin Globulin Ratio 1.5 (0.9-2); Albumin Level 4.1 gm/dl (3.4-5.0); BUN Creatinine Ratio 32.4 (10-20); Bilirubin,Total 0.9 mg/dl (0.2-1.0); Calcium 9.3 mg/dl (8.6-10.3); Chol HDL Ratio 4.6 (0-5); Creatinine Clr Calc Pharmacy 56.7 ml/min; Est GFR (African American) 107.5 ml/min; Est GFR (Non-African American) 92.8 ml/min; Globulin 2.7 gm/dl (2.5-4.0); Magnesium 2.3 mg/dl (1.7-2.4); Potassium 5.1 mmol/L (3.5-5.1); Total Protein 6.8 gm/dl (6.0-8.3)
[2023-11-15 07:07] LABS: Prothrombin Time 10.7 Seconds (9.0-12.0)
[2023-11-15] MEDS: CLOPIDOGREL BISULFATE 75 MG TAB PO SCH (09:27)
[2023-11-15] MEDS: ASPIRIN 81 MG ECTAB PO SCH (09:27)
[2023-11-15] MEDS: ATORVASTATIN 20 MG TAB PO SCH (09:27)
--- NOTE | 2023-11-15 22:36 | Hospitalist Progress Note ---
Date of Service November 15, 2023 Assessment & Plan (1) Stroke-like symptoms: Plan: Admit to the PCU on telemetry Currently stable with patient reporting resolution of subjective left-sided facial numbness, left upper extremity numbness/weakness, and confusion Patient presented to the ED as a stroke alert with acute onset of symptoms around 7 AM, last known well was approximately 6 AM. Patient was evaluated by [facility] who believed the patient's vascu lar findings were chronic and recommended full dose aspirin and statin with ongoing stroke workup TNK administration was not recommended due to symptoms significantly improving at the time of arrival ED did confirm that telestroke recommended permissive hypertension with systolic blood pressure of 220 mmHg and diastolic of 110 mmHg Status post 324 mg aspirin and 80 mg atorvastatin prior to admission Will obtain MRI of the brain without con, TTE, a.m. A1c and fasting lipid panel for further evaluation Will place neurology, PT/OT consults Every 4 hours neurochecks Will keep patient n.p.o. until he is evaluated by speech therapy due to his high risk for aspiration Will plan to continue 81 mg aspirin and 20 mg atorvastatin tomorrow, can adjust dosing based on fasting lipid panel IV labetalol 5 mg IV every 4 hours as needed systolic BP greater than 220 mmHg or diastolic greater than 120 mmHg Bilateral SCDs for DVT prophylaxis AM CBC, CMP, mag, PT/INR On 11/14 symptoms have improved. MRI: brain was negative for acute stroke. Likely TIA Echo: showed no shunt Will monitor overnight. (2) HTN (hypertension): Plan: Patient confirms he did not take his a.m. dose of lisinopril prior to onset of symptoms Hold lisinopril for now while allowing permissive hypertension As needed IV labetalol per strokelike symptoms plan (3) Chronic pain: Plan: Patient is typically on 5 mg buprenorphine patch changed weekly Patient's patch was on the left chest at the time of arrival, this was removed by nursing staff Confirmed with nursing staff that patient is on the 5 mg patch Has a new patch placed at the time of admission to prevent patient going into withdrawal (4) Right internal carotid occlusion: Plan: Patient noted to have age-indeterminate occlusion of the right internal carotid artery with reconstitution of flow within the petrous segment Also noted to have thready flow within the diminutive right vertebral artery with widely patent left vertebral artery [facility] provider expressed to the ED staff at these findings appear chronic Will continue with 81 mg aspirin and 20 mg statin tomorrow, follow Hgb A1c and fasting lipid panel Will speak with our on-call neurologist to see if they would recommend starting the patient on dual antiplatelet therapy with his significant chronic atherosclerotic disease (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 until he is evaluated by speech therapy Patient normally uses a full liquid diet at home Plan = Admission and Anticipated Discharge Date Admission Date: November 14, 2023 Subjective 78 yo male reports that his symptoms have improved. He still notices mild numbness on the left lower side of his face, but states this is close to his baseline. Review of Systems Review of Systems: All systems reviewed & are unremarkable except as noted in HPI & below Physical Exam Physical Exam: General: In no acute distress, stated age, non-toxic appearing HEENT: NC/AT Chest/Pulm: No respiratory distress, symmetrical chest expansion, clear breath sounds throughout Cardiac: RRR, no murmurs noted Abdomen: Negative for ascites and bruising, normoactive bowel sounds, soft, non-tender to palpation throughout Extremities: Radial, dorsalis pedis, and posterior tibial pulses are intact and symmetrical Neuro: Alert and oriented to person, place, month, year, and president, facial droop is difficult to observer due to significant previous facial surgery Psych: No acute distress, calm and cooperative during the exam Results & Data Results & Data Vital Signs (Past 12 Hours) Vital Signs Temp Pulse Pulse Resp BP Pulse Ox O2 Del Method 11/15/23 19:04 37.2 C 80 16 172/96 H 96 Room Air 11/15/23 15:51 79 11/15/23 15:34 36.9 C 70 16 167/90 H 96 Room Air 11/15/23 10:55 36.7 C 74 18 133/76 96 Room Air PG Care Time/CCT Total # of Minutes Spent Total Time Spent with Patient: Total time spent is greater than 50% in coordination of care (as documented) at patient's floor/unit and/or counseling patient: Coding Level of Care Code 61124 SUB INP/OBS CARE 2/35MIN Diagnoses Stroke-like symptoms R29.90 HTN (hypertension) I10 Chronic pain G89.29 Right internal carotid occlusion I65.21 Cancer of mandible C41.1
[2023-11-16 00:29] VITALS: RESP 18
[2023-11-16 06:45] LABS: Basophils # (auto) 0.05 K/uL (0.00-0.20); Basophils % (auto) 0.7 %; Eosinophils # (auto) 0.34 K/uL (0.00-0.50); Eosinophils % (auto) 4.9 %; Hematocrit (blood only) 43.7 % (42.0-52.0); Hemoglobin 14.8 g/dl (14.0-18.0); Immature Granulocytes # (auto) 0.03 K/uL (0.01-0.20); Immature Granulocytes % (auto) 0.4 %; Lymphocytes # (auto) 1.99 K/uL (1.20-3.40); Lymphocytes % (auto) 28.6 %; Mean Corpuscular Hemoglobin 32.4 pg (25.0-34.0); Mean Corpuscular Hgb Conc 33.9 g/dL (32.0-36.0); Mean Corpuscular Volume 95.6 fL (80.0-100.0); Mean Platelet Volume 9.7 fL (9.4-12.4); Monocytes # (auto) 0.56 K/uL (0.11-0.59); Neutrophils # (auto) 3.99 K/uL (1.40-6.50); Neutrophils % (auto) 57.4 %; Platelet Count 171 K/uL (130-400); RDW Coefficient of Variation 12.3 % (11.5-14.5); RDW Standard Deviation 42.8 fL (36.4-46.3); Red Blood Count 4.57 M/uL (4.70-6.10); White Blood Count 6.96 K/ul (4.8-10.8)
[2023-11-16 07:00] LABS: Albumin Globulin Ratio 1.5 (0.9-2); Albumin Level 4.1 gm/dl (3.4-5.0); BUN Creatinine Ratio 28.8 (10-20); Bilirubin,Total 0.8 mg/dl (0.2-1.0); Calcium 9.2 mg/dl (8.6-10.3); Est GFR (African American) 108.8 ml/min; Est GFR (Non-African American) 93.9 ml/min; Globulin 2.7 gm/dl (2.5-4.0); Magnesium 2.2 mg/dl (1.7-2.4); Potassium 4.7 mmol/L (3.5-5.1); Total Protein 6.8 gm/dl (6.0-8.3)
[2023-11-16 07:04] LABS: Prothrombin Time 10.6 Seconds (9.0-12.0)
[2023-11-16 07:31] VITALS: TEMP 98.2; O2SAT 96
[2023-11-16] MEDS ORDERED: STROKE PATIENT DISCHARGE STA (10:34)
--- NOTE | 2023-11-16 10:37 | Discharge Summary ---
Date of Service November 16, 2023 Admission HPI Per Admitting Provider Yaw is a 78-year-old male with a past medical history significant for mandibular cancer S/P radiation/chemotherapy and left mandibular resection in 2006, HTN, chronic pain (on Buprenorphine patch) who presented [facility] ED via EMS on 11/14/2023 with acute onset of left arm weakness and inability to swallow at 705 this morning. Per EMS the patient was noted to have left-sided weakness, left-sided facial droop, and slurred speech. He was noted to have slurred speech and left-sided facial droop on arrival to the ED. He was noted to be hypertensive at 178/94 but was otherwise stable. Labs including CBC, CMP, and high-sensitivity troponin were unremarkable. CT of the head and brain without contrast was read as negative for acute intracranial hemorrhage, midline shift or acute tentorial infarct. Chronic right parietooccipital infarcts are new from prior. 1.4 cm right periventricular hypodensity is new from 2008, also suggestive of a chronic infarct. CTA of the head/brain noted complete and age indeterminant thrombosis of the distal cervical portions of the right internal carotid artery with reconstitution at the skull base. This may be chronic as there are remote righ t-sided MCA territory infarcts. An underlying dissection will be impossible to exclude. Correlate with neurologic history. There is only thready flow within the diminutive right vertebral artery. The dominant left vertebral artery is widely patent. The anterior, middle, and posterior cerebral arteries are patent bilaterally. CTA of the neck was read as age-indeterminate occlusion of the right internal carotid artery with reconstitution of flow within the petrous segment. Developmentally diminutive right vertebral artery with multifocal stenosis. 60% stenosis at the origin of the left internal carotid artery. The patient was evaluated by [facility] telestroke provider Dr. Sanchez who recommended giving the patient a dose of full dose aspirin, statin, and obtaining the rest of his stroke workup. [facility] findings to be [facility] in regards to his right internal carotid and vertebral artery stenosis/occlusion. Prior to admission the patient was given 324 mg aspirin and 80 mg atorvastatin. Patient was sitting in bed in no acute distress at the time of exam. He states that he felt his normal self when he woke around 6 AM. He took his a.m. medications including lisinopril. [place] the gas station when his symptoms acutely started. He noted left-sided facial numbness, left upper extremity numbness/weakness, and confusion. He feels his symptoms have resolved at the time of admission. He is on the buprenorphine patch due to severe osteoarthritis and pain from his extensive surgery in 2006. He does not use tobacco or alcohol. We discussed CODE STATUS, he wishes to be a full code and his sister is his power of mergers and acquisitions attorney. Please refer to Dr. Page's attestation for any changes to the treatment plan. Discharge Data Allergies Allergy/AdvReac Type Severity Reaction Status Date / Time No Known Allergies Allergy Unverified 11/14/23 12:31 Ordered Studies 11/14/23 08:12 CT angio head w con Stat CT angio neck with con Stat CT head/brain wo con Stat 11/14/23 10:48 MRI Brain [MR brain wo con] Routine Hospital Course (1) Stroke-like symptoms: Admit to the PCU on telemetry Currently stable with patient reporting resolution of subjective left-sided facial numbness, left upper extremity numbness/weakness, and confusion Patient presented to the ED as a stroke alert with acute onset of symptoms around 7 AM, last known well was approximately 6 AM. Patient was evaluated by [facility] who believed the patient's vascular findings were chronic and recommended full dose aspirin and statin with ongoing stroke workup TNK administration was not recommended due to symptoms significantly improving at the time of arrival ED did confirm that telestroke recommended permissive hypertension with sy stolic blood pressure of 220 mmHg and diastolic of 110 mmHg Status post 324 mg aspirin and 80 mg atorvastatin prior to admission Will obtain MRI of the brain without con, TTE, a.m. A1c and fasting lipid panel for further evaluation Will place neurology, PT/OT consults Every 4 hours neurochecks Will keep patient n.p.o. until he is evaluated by speech therapy due to his high risk for aspiration Will plan to continue 81 mg aspirin and 20 mg atorvastatin tomorrow, can adjust dosing based on fasting lipid panel IV labetalol 5 mg IV every 4 hours as needed systolic BP greater than 220 mmHg or diastolic greater than 120 mmHg Bilateral SCDs for DVT prophylaxis AM CBC, CMP, mag, PT/INR On 11/14 symptoms have improved. MRI: brain was negative for acute stroke. Likely TIA Echo: showed no shunt Will monitor overnight. (2) HTN (hypertension): Patient confirms he did not take his a.m. dose of lisinopril prior to onset of symptoms Hold lisinopril for now while allowing permissive hypertension As needed IV labetalol per strokelike symptoms plan (3) Chronic pain: Patient is typically on 5 mg buprenorphine patch changed weekly Patient's patch was on the left chest at the time of arrival, this was removed by nursing staff Confirmed with nursing staff that patient is on the 5 mg patch Has a new patch placed at the time of admission to prevent patient going into withdrawal (4) Right internal carotid occlusion: Patient noted to have age-indeterminate occlusion of the right internal ca rotid artery with reconstitution of flow within the petrous segment Also noted to have thready flow within the diminutive right vertebral artery with widely patent left vertebral artery [facility] provider expressed to the ED staff at these findings appear chronic Will continue with 81 mg aspirin and 20 mg statin tomorrow, follow Hgb A1c and fasting lipid panel Will speak with our on-call neurologist to see if they would recommend starting the patient on dual antiplatelet therapy with his significant chronic atherosclerotic disease (5) Cancer of mandible: Status post radiation, chemotherapy, and left mandibular resection in 2006 Patient is high risk for aspiration, will keep n.p.o. until he is evaluated by speech therapy Patient normally uses a full liquid diet at home Plan = Discharge Plan Discharge Items Patient Disposition: Home - Self-Care Reason For Visit: Stroke Alert, L Weakness Discharge Diagnosis: stroke alert Activity: Resume your previous activity Non-emergency contact: Primary Care Provider Call non-emergency contact if: you have any medication questions Follow-up/Referrals: [facility] [Primary Care Provider] - Diet: Heart Healthy Addtl Attending Provider Instructions: Recommend followup with PCP in 1-2 weeks. Continue aspirin and plavix for 21 days. Then continue on plavix only. WIll recommend holding meloxicam moving forward due to bleeding wirsk, You may use tylenol instead for pain. Also will place on a low dose of a pantoprazole to protect your stomach from bleeding while on plavix and aspirin. Risk Factors for Stroke: You can reduce your chances of stroke by working with your medical provider to adopt a healthy lifestyle. Some specific ways to lower your chance of stroke are: * If you are a smoker, now is the time to stop smoking cigarettes * If you are diabetic, improve the control of your blood sugars * Avoid excessive amounts of alcohol * Control high blood pressure * Lose weight if you are overweight * Be sure to lead an active lifestyle * Eat a healthy diet low in salt, cholesterol and fat You should know about other risk factors for stroke that you are unable to control. These include: * Age 55 years or older * Male gender * Certain racial groups: , or / * Family History of Stroke, Mini stroke or Heart Attack * Sickle Cell Disease Follow Up: It is important for you to keep your follow up appointments with your medical provider. Who to Call and When: Medical Emergencies: Call 911 immediately if you experience any of the following warning signs and symptoms of Stroke: * Sudden numbness or weakness of the face, arm or leg, especially on one side of the body * Sudden confusion, trouble speaking or understanding * Sudden trouble seeing in one or both eyes * Sudden trouble walking, dizziness, loss of balance or coordination * Sudden severe headache with no cause Do not delay calling 911 if you experience any warning signs or symptoms of a stroke. Delay in seeking medical attention may affect what treatments can be given to you. . Pending Studies at Discharge: No Stand-Alone Forms: My [facility] [email or web address], Smoking Cessation Medications and DC Order Prescriptions: New atorvastatin 20 mg Tablet 20 mg PO QAM Qty: 30 0RF clopidogrel 75 mg Tablet 75 mg PO QAM Qty: 30 0RF aspirin 81 mg Tablet,Delayed Release (Dr/Ec) 81 mg PO DAILY Qty: 21 0RF Rx Instructions: Take aspirin for 21 days. pantoprazole 20 mg tablet,delayed release (DR/EC) 20 mg PO DAILY Qty: 28 0RF Continued sildenafil 100 mg Tablet 50 mg PO DAILY PRN (Reason: Erectile Dysfunction) ketorolac 0.5 % Drops 1 drp OPHTHALMIC (EYE) UD Rx Instructions: 1 drop right eye qid. Filled 6[facility] prednisolone acetate 1 % Drops,Suspension 1 drp ophthalmic (eye) UD Rx Instructions: 1 drop right eye qid day. Filled 6[facility]6 [facility] lisinopril 10 mg Tablet 10 mg PO DAILY docusate sodium 100 mg Capsule 100 mg PO BID fluticasone propionate [Flonase] 50 mcg/actuation [place],Suspension 1 spray INTRANASAL BID PRN (Reason: allergies) Rx Instructions: administer into each nostril loratadine 10 mg Tablet 10 mg PO DAILY PRN (Reason: allergies) Ensure Liquid 1 ea PO TID moxifloxacin 0.5 % Drops 1 drp ophthalmic (eye) UD Rx Instructions: 1 drop right eye qid. Surgical prophylaxis sent 10/12 per [place] diclofenac sodium 1 % Gel 1 ea TOPICAL QID PRN (Reason: joint pain) buprenorphine 5 mcg/hour Patch Weekly 1 patch TRANSDERMAL Q7D Multi-Vitamin W/Minerals 1 tspn PO DAILY Discontinued meloxicam 15 mg Tablet 15 mg PO DAILY Discharge Orders: Discharge Order (Routine); Ordered 11/16/23 Ordered By: Daniel Hansen Admission Data Admit Date/Time: 11/14/23 10:28 Attending Provider: Daniel Hansen Admit Provider: Дмитрий Page Primary Care Provider: [facility] Other Providers: [facility] Coding Diagnoses Stroke-like symptoms R29.90 HTN (hypertension) I10 Chronic pain G89.29 Right internal carotid occlusion I65.21 Cancer of mandible C41.1
[2023-11-16 10:43] VITALS: BP 130/83; PULSE 82
--- NOTE | 2023-11-16 10:49 | Pharmacy Report ---
- Date of Service November 16, 2023 - Pharmacy CVA/TIA Medication Review Medications to Prevent Stroke handout has been added to the patients discharge packet. Possible TIA Antiplatelet(s) * Asa 81 mg + Clopidogrel 75 mg daily x 21 days then clopidogrel 75 mg daily alone Cholesterol * statin: atorvastatin 20 mg daily * age >75, may require uptitration DVT Prophylaxis * SCD knee Therapeutic Anticoagulation * No history of Afib/Aflutter noted Type 2 Diabetes * Patient does not have T2DM; A1c c/w pre-diabetes
--- NOTE | 2023-11-18 14:25 | Pharmacy Report ---
Pharmacist Stroke Counseling - Date of Service November 18, 2023 - Scope: Pharmacy has been consulted to provide medication discharge counseling for this patient as per the Pharmacist Discharge Counseling for Stroke Patients Protocol. - Medications on Discharge: Home Medications Medication Instructions Recorded Confirmed Multi-Vitamin W/Minerals 1 tspn PO DAILY 11/14/23 11/14/23 buprenorphine 5 mcg/hour weekly 1 patch transdermal Q7D 11/14/23 11/14/23 transdermal patch diclofenac sodium 1 % topical gel 1 ea topical QID PRN joint pain 11/14/23 11/14/23 docusate sodium 100 mg capsule 100 mg PO BID 11/14/23 11/14/23 fluticasone propionate 50 1 spray intranasal BID PRN 11/14/23 11/14/23 mcg/actuation nasal allergies spray,suspension food supplemt, lactose-reduced 1 ea PO TID 11/14/23 11/14/23 (Ensure oral liquid) ketorolac 0.5 % eye drops 1 drp ophthalmic (eye) UD 11/14/23 11/14/23 lisinopril 10 mg tablet 10 mg PO DAILY 11/14/23 11/14/23 loratadine 10 mg tablet 10 mg PO DAILY PRN allergies 11/14/23 11/14/23 moxifloxacin 0.5 % eye drops 1 drp ophthalmic (eye) UD 11/14/23 11/14/23 prednisolone acetate 1 % eye 1 drp ophthalmic (eye) UD 11/14/23 11/14/23 drops,suspension sildenafil 100 mg tablet 50 mg PO DAILY PRN Erectile 11/14/23 11/14/23 Dysfunction New Rx's Medication Instructions Recorded aspirin 81 mg tablet,delayed 81 mg PO DAILY #21 tabs 11/16/23 release atorvastatin 20 mg tablet 20 mg PO QAM #30 tabs 11/16/23 clopidogrel 75 mg tablet 75 mg PO QAM #30 tabs 11/16/23 pantoprazole 20 mg tablet,delayed 20 mg PO DAILY #28 tabs 11/16/23 release - Action: The above medications, specifically ones for stroke treatment/prophylaxis, have been reviewed in detail with the patient after discharge. This includes in dication and common adverse reactions. - Outcome: The patient demonstrated understanding of the medications. Additional comments: [facility] He has [facility] his medications. No issues noted. I counseled r/e possibility of stopping pantoprazole after he completes the 3 weeks of dual antiplatelet therapy and noted she should discuss this with his provider at his upcoming appointment. I also noted that he should consider asking them about his atorvastatin dose of 20 mg to see if he may benefit from a high intensity statin dose. Yaw acknowledged understanding. Thank you for allowing pharmacy to be involved in the care of this patient. Please call [phone] with any additional questions
== END 2023-11-16 11:53 | disposition home or self-care (01) | DRG 68 ==
LOC: ED 08:11 → 2E 10:28 → SUATTDRO 10:28 → 2E 14:00